=== PATIENT | female | born 1930 | race Caucasian/White ===

== ENCOUNTER → 2016-05-11 | Outpatient (CLI) | payer MEDICARE, BC | END | disposition home or self-care (01) | LOC: PCVCIMAG 14:33 | PROVIDERS: ATTEND Internal Medicine Cardiovascular Disease | DX: I25.10 Atherosclerotic heart disease of native coronary artery without angina pectoris (principal); I35.0 Nonrheumatic aortic (valve) stenosis; E78.00 Pure hypercholesterolemia, unspecified; I10 Essential (primary) hypertension | CPT/HCPCS: 93005; 93306; G0463 ==

== ENCOUNTER → 2016-08-16 | Outpatient (CLI) | payer MEDICARE, BC | END | disposition home or self-care (01) | LOC: PCVCCLINIC 15:39 | PROVIDERS: ATTEND Internal Medicine Cardiovascular Disease | DX: I65.23 Occlusion and stenosis of bilateral carotid arteries (principal); I25.10 Atherosclerotic heart disease of native coronary artery without angina pectoris; I35.0 Nonrheumatic aortic (valve) stenosis; E78.00 Pure hypercholesterolemia, unspecified; I10 Essential (primary) hypertension | CPT/HCPCS: 93005; 93880; G0463 ==

== ENCOUNTER → 2017-07-31 | Outpatient (CLI) | payer MEDICARE, BC | END | disposition home or self-care (01) | LOC: PCVCCLINIC 11:02 | DX: I25.10 Atherosclerotic heart disease of native coronary artery without angina pectoris (principal); I10 Essential (primary) hypertension; E78.00 Pure hypercholesterolemia, unspecified; I35.0 Nonrheumatic aortic (valve) stenosis; R94.31 Abnormal electrocardiogram [ECG] [EKG]; Z79.899 Other long term (current) drug therapy | CPT/HCPCS: 80061; 93005; G0463 ==

== ENCOUNTER → 2018-02-12 | Outpatient (CLI) | payer MEDICARE, BC ==
--- NOTE | 2018-02-12 15:24 | PCVCIMAG ---
APPROVED REPORT Study performed: 02/12/2018 13:35:21 EXAM: Comprehensive 2D, Doppler, and color-flow Echocardiogram Patient Location: Echo lab Status: routine BSA: 1.72 HR: 85 bpmBP: 130/80 mmHg Rhythm: NSR Other Information Study Quality: Adequate Indications Aortic Valve Disease CAD Hypertension/HDD 2D Dimensions IVSd: 16.39 (7-11mm)LVOT Diam: 20.30 (18-24mm) LVDd: 38.56 mm PWd: 12.04 (7-11mm)Ascending Ao: 37.42 (22-36mm) LVDs: 30.12 (25-40mm) Left Atrium: 35.76 (27-40mm) Aortic Root: 33.84 mm LV Single Plane 4CH: 59.14 % LV Single Plane 2CH: 72.77 % Biplane EF: 67.3 % Volumes Left Atrial Volume (Systole) Single Plane 4CH: 30.60 mLSingle Plane 2CH: 29.91 mL LA ESV Index: 19.00 mL/m2 Aortic Valve AoV Peak Florin.: 3.04 m/s AO Peak Gr.: 36.87 mmHgLVOT Max P.55 mmHg AO Mean Gr.: 23.51 mmHgLVOT Mean P.53 mmHg AO V2 Mean: 2.39 m/sLVOT Max V: 0.94 m/s AO V2 VTI: 61.37 cmLVOT Mean V: 0.78 m/s CHI (VTI): 1.07 [id number] V1 VTI: 20.33 cm CHI Vmax: 1.00 cm2 AI Vmax: 3.30 m/sSV (LVOT): 65.80 mL AI Luna: 1.19 m/s2 AI PHT: 803.66 ms Mitral Valve E/A Ratio: 0.4 MV Decel. Time: 231.04 ms MV E Max Florin.: 0.39 m/s MV A Florin.: 0.93 m/s Pulmonary Valve PV Peak Gr.: 1.88 mmHg Tricuspid Valve TR Peak Florin.: 2.33 m/s TR Peak Gr.: 21.66 mmHg Left Ventricle The left ventricle is normal size. There is normal LV segmental wall motion. Mild concentric left ventricular hypertrophy. Left ventricular systolic function is normal. The left ventricular ejection fraction is within the normal range. LVEF is >55%. The left ventricular diastolic function is normal. Right Ventricle The right ventricle is normal size. The right ventricular systolic function is normal. Atria The left atrium size is normal. The right atrium size is normal. Aortic Valve Aortic valve leaflets are moderately thickened. Aortic peak gradient is 37mmHg. Mean gradient is 24mmHg. Calculated valve area is 1.0cm2. Trace aortic regurgitation. Moderate to severe aortic stenosis. Mitral Valve The mitral valve is normal in structure. Mild mitral regurgitation. No evidence of mitral valve stenosis. Tricuspid Valve The tricuspid valve is normal in structure. Mild tricuspid regurgitation. Pulmonary artery pressure is 29mmHg. Pulmonic Valve The pulmonary valve is normal in structure. Trace pulmonic regurgitation. Great Vessels The aortic root is normal in size. IVC is normal in size and collapses >50% with inspiration. Pericardium There is no pericardial effusion. <Conclusion> The left ventricle is normal size. Mild concentric left ventricular hypertrophy. LVEF is >55%. The left ventricular diastolic function is normal. The right ventricle is normal size. The left atrium size is normal. Aortic valve leaflets are moderately thickened. Aortic peak gradient is 37mmHg. Mean gradient is 24mmHg. Calculated valve area is 1.0cm2. Moderate to severe aortic stenosis. Mild mitral regurgitation. Mild tricuspid regurgitation. Pulmonary artery pressure is 29mmHg. The aortic root is normal in size. There is no pericardial effusion.
== END | disposition home or self-care (01) ==
LOC: PCVCIMAG 13:28
PROVIDERS: ATTEND Internal Medicine Cardiovascular Disease
DX: I08.1 Rheumatic disorders of both mitral and tricuspid valves (principal); I25.10 Atherosclerotic heart disease of native coronary artery without angina pectoris; I10 Essential (primary) hypertension; E78.00 Pure hypercholesterolemia, unspecified
CPT/HCPCS: 80061; 93005; 93306; G0463